=== PATIENT | male | born 1940 | race Caucasian/White ===

== ENCOUNTER → 2017-05-29 | Outpatient (CLI) | payer OTHER ==
[~2017-05-29] MED LIST: DIGOXIN IV PUSH; DILAUDID 2 MG TA2 MG IV PUSH; DUONEB 2.5-0.5 M3 ML INH; ENOXAPARIN120 MG/0.1 SUBQ; LIDODERM 5%1 PATC1 TRANSDERM; MAXIPIME 1 GM/D51 G1 IV; NYSTATIN15 GM TP; PROTONIX40 M1 IV PUSH; PULMICORT0.5 MG/22 INH; TRIAMCINOLONE A80 G2 TOP; ZYPREXA2.5 MG IV PUSH; [UNRECOGNIZED DRUG - OTHER] IV PUSH
[2017-05-29 10:06] LABS: HEMATOCRIT 30.4 % (42.0-52.0); HEMOGLOBIN 10.1 gm/dL (14.0-18.0); MCH 31.1 pg (26.0-34.0); MCHC 33.3 g/dL (28.0-37.0); MCV 93.5 fL (80.0-100.0); RBC 3.25 mil/uL (4.50-6.00); RDW 15.8 % (10.5-14.5); WBC 6.8 thou/uL (4.0-11.0)
[2017-05-29 10:10] VITALS: BP 137/94
[2017-05-29 10:19] LABS: INR 1.2; PROTIME 12.4 Seconds (9.3-11.4)
[2017-05-29 10:36] LABS: CALCIUM 8.8 mg/dL (8.5-10.1); CREATININE 0.7 mg/dL (0.7-1.3); POTASSIUM 4.4 mmol/L (3.5-5.1)
== END | disposition home or self-care (01) ==
LOC: SPEC 08:23
PROVIDERS: Internal Medicine
DX: K94.23 Gastrostomy malfunction (principal); I25.10 Atherosclerotic heart disease of native coronary artery without angina pectoris; I11.0 Hypertensive heart disease with heart failure; I50.9 Heart failure, unspecified; J44.9 Chronic obstructive pulmonary disease, unspecified; I48.91 Unspecified atrial fibrillation; I42.8 Other cardiomyopathies; E78.5 Hyperlipidemia, unspecified; G47.33 Obstructive sleep apnea (adult) (pediatric); K21.9 Gastro-esophageal reflux disease without esophagitis; Z95.2 Presence of prosthetic heart valve; Z85.01 Personal history of malignant neoplasm of esophagus; Z87.891 Personal history of nicotine dependence; Z90.49 Acquired absence of other specified parts of digestive tract; Z98.890 Other specified postprocedural states; Z95.1 Presence of aortocoronary bypass graft; Z79.899 Other long term (current) drug therapy

== ENCOUNTER → 2017-06-06 | Outpatient (CLI) | payer OTHER ==
[2017-06-06 09:30] VITALS: BP 132/76
== END ==
LOC: SPEC 09:41
DX: K94.23 Gastrostomy malfunction (principal); I11.0 Hypertensive heart disease with heart failure; I50.9 Heart failure, unspecified; I25.10 Atherosclerotic heart disease of native coronary artery without angina pectoris; J44.9 Chronic obstructive pulmonary disease, unspecified; I48.91 Unspecified atrial fibrillation; E78.5 Hyperlipidemia, unspecified; I42.8 Other cardiomyopathies; K21.9 Gastro-esophageal reflux disease without esophagitis; Z87.891 Personal history of nicotine dependence; Z98.890 Other specified postprocedural states; Z95.1 Presence of aortocoronary bypass graft; Z90.49 Acquired absence of other specified parts of digestive tract; Z85.01 Personal history of malignant neoplasm of esophagus; Z79.899 Other long term (current) drug therapy

== ENCOUNTER → 2017-10-10 | Outpatient (CLI) | payer OTHER ==
[2017-10-10 13:22] VITALS: BP 129/92
== END | disposition home or self-care (01) ==
LOC: SPEC 11:11
DX: K94.23 Gastrostomy malfunction (principal); J44.9 Chronic obstructive pulmonary disease, unspecified; I73.89 Other specified peripheral vascular diseases; Z85.028 Personal history of other malignant neoplasm of stomach; Z79.899 Other long term (current) drug therapy